=== PATIENT | male | born 1980 | race Caucasian/White ===

== ENCOUNTER → 2016-10-18 | Outpatient (REF) ==
--- NOTE | 2016-10-18 15:04 | REP ---
Clinical: chest pain. Comparison: none. Technique: PA and lateral. Findings: The mediastinum and cardiac silhouette are normal. The lung spencer are clear and without acute consolidation, effusion, or pneumothorax. The skeletal structures are intact and normal. Impression: 1. No acute cardiopulmonary process. Signed by Pedro Jaimes MD 10/18/2016 02:56 P
--- NOTE | 2016-10-18 15:20 | REP ---
SINUSES, FIVE VIEWS: HISTORY: Disability. The sinuses are clear. There is no acute fracture or bone lesion. IMPRESSION: Normal study. Signed by Pollo Morfin MD 10/18/2016 03:24 P
== END ==
LOC: M SMT 13:35
PROVIDERS: ATTEND Internal Medicine
DX: Z02.71 Encounter for disability determination (principal)